=== PATIENT | male | born 1980 | race Caucasian/White ===

== ENCOUNTER → 2023-03-03 | Emergency (ER) | payer OTHER ==
[~2023-03-03] VITALS: Ht 167.6 cm; Wt 3.1 kg
[~2023-03-03] MED LIST: CYCLOBENZAPRINE10 MG PO
[2023-03-03 21:45] LABS: HEMATOCRIT 32.6 % (35.0-50.0); HEMOGLOBIN 11.3 g/dL (12.0-18.0); MCH 26.4 (27-36); MCHC 34.7 g/dl (30-36); MCV 76.2 fl (81-99); PLATELET COUNT 113 K/uL (140-440); RBC 4.27 M/ul (4.3-5.7); RDW 16.7 (10.5-15.0)
[2023-03-03 21:48] LABS: INFLUENZA B NAA NEGATIVE (NEGATIVE); RESPIRATORY SYNCYTIAL VIR NAA NEGATIVE (NEGATIVE)
[2023-03-03 21:56] LABS: ALBUMIN 3.5 g/dL (3.4-5.0); ALBUMIN/GLOBULIN RATIO 0.97 (1.1-2.4); ANION GAP 10.5 (7-21); BILIRUBIN, TOTAL 1.6 ng/dL (0.2-1.0); BUN/CREATININE RATIO 8.69 (6.0-28.6); CALCIUM 8.6 mg/dL (8.5-10.1); CREATININE, SERUM 0.92 mg/dL (0.70-1.30); POTASSIUM 3.5 mmol/L (3.5-5.1); PROTEIN, TOTAL 7.1 g/dL (6.4-8.2)
[2023-03-03 22:02] LABS: BANDS, MANUAL DIFF 14; EOSINOPHILS, MANUAL DIFF 1; LYMPHOCYTES, MANUAL DIFF 46; MONOCYTES, MANUAL DIFF 4; NEUTROPHILS, MANUAL DIFF 35
[2023-03-03 22:13] LABS: BILIRUBIN, URINE NEGATIVE (negative); BLOOD/HGB, URINE NEGATIVE (Negative); KETONE, URINE NEGATIVE (Negative); LEUK ESTERASE, URINE NEGATIVE (negative); NITRITE, URINE NEGATIVE (negative); PH, URINE 6.5 (5-7)
[2023-03-03 22:55] LABS: LACTIC ACID, BLOOD 1.1 mmol/L (0.4-2.0)
[2023-03-04 00:45] VITALS: BP 135/95
== END ==
LOC: ED 20:42
PROVIDERS: Internal Medicine
DX: B34.9 Viral infection, unspecified (principal); E86.0 Dehydration; D72.819 Decreased white blood cell count, unspecified; D69.6 Thrombocytopenia, unspecified; R74.01 Elevation of levels of liver transaminase levels; Z88.2 Allergy status to sulfonamides; Z88.0 Allergy status to penicillin; Z20.822 Contact with and (suspected) exposure to COVID-19
CPT/HCPCS: 36415; 70450; 71045; 80053; 81003; 82553; 83605; 85025; 87502; J0696; J0780; J1885; J7121; U0002